=== PATIENT | male | born 1995 ===

== ENCOUNTER 2022-06-19 11:16 | Emergency (ER) | payer OTHER ==
[~2022-06-19] VITALS: Ht 172.7 cm; Wt 72.7 kg
[2022-06-19] MEDS ORDERED: azithromycin 250mg tablet PO ONE (13:35)
[2022-06-19] MEDS ORDERED: CefTRIAXone 500MG IM Kit w/LIDOcaine IM ONE (13:35)
--- NOTE | 2022-06-19 17:05 | NUR ---
Pt brought in by officers from alf for SART Exam. Exam conducted with patient refusing various parts. Prophalaxis for STI given per MD order. Snacks and drinks given with meds, Officers state they have clothing and will submit them independently. DC Instructions given to patient and officers verbalize understanding of medical and emotional follow up to which they stated they will give all instructions to their medical unit. Pt advocate from [facility] at bedside and will follow pt for aftercare.
== END 2022-06-19 18:50 | disposition home or self-care (01) ==
LOC: ER 11:16 → EEVIPCON 11:16 → ER 18:50
DX: T76.21XA Adult sexual abuse, suspected, initial encounter (principal); Z88.0 Allergy status to penicillin; Z88.5 Allergy status to narcotic agent; Z79.899 Other long term (current) drug therapy; X58.XXXA Exposure to other specified factors, initial encounter
CPT/HCPCS: 96372; 99284; J0696; 99283